=== PATIENT | male | born 1980 | race Caucasian/White ===

== ENCOUNTER → 2018-03-17 | Outpatient (CLI) | payer BC ==
--- NOTE | 2018-03-17 16:49 | RAD ---
Exam: Right Upper Quadrant Ultrasound 03/17/2018 3:00 PM Indication: Elevated liver enzymes Technique: Multiple realtime grayscale sonographic images were obtained over the abdomen. Static images were submitted for interpretation. Comparisons: None Findings: Visualized portions of the pancreas are unremarkable. The IVC is patent. Liver is top normal in diameter measuring between 17 and 18 cm longitudinally. The liver is diffusely hyperechoic which most commonly reflects hepatic steatosis.. No focal hepatic lesions are identified. The gallbladder is nondistended. There is no evidence for cholelithiasis. There is no wall thickening, or pericholecystic fluid. The common bile duct is within normal limits measuring 4 mm in diameter. The Right kidney is normal in size measuring 11 cm. there is no evidence for mass, nephrolithiasis, or hydronephrosis No ascites is identified Impression: Diffusely hyperechoic liver, suggesting hepatic steatosis. Otherwise unremarkable right quadrant ultrasound Electronically signed by: Mango Wolf MD (03/17/2018 4:45 PM) [id number]
== END | disposition home or self-care (01) ==
LOC: US 14:46
PROVIDERS: ATTEND Nurse Practitioner Family
DX: K76.0 Fatty (change of) liver, not elsewhere classified (principal)
CPT/HCPCS: 76705